=== PATIENT | female | born 1950 | race American Indian/Alaskan Native ===

== ENCOUNTER 2022-02-14 15:58 | Emergency (ER) | payer MEDICARE ==
[2022-02-14 16:09] VITALS: BP 192/72
--- NOTE | 2022-02-16 13:25 | Electrocardiograph Report ---
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
--- NOTE | 2022-02-16 13:25 | Electrocardiograph Report ---
[facility] Test Date: 2022-02-14 Test Time: 17:01:32 Pat Name: ROBBIN STEVENS Department: Room: Gender: F Director Of Acquisitions: JOSEPH : 1950 Requested By: CRIS BILL Order Number: [id number] Reading MD: Opal Vargas Measurements Intervals [place] Rate: 98 P: 66 [place]: 159 QRS: 31 QRSD: 71 T: 51 QT: 363 QTc: 464 Interpretive Statements Sinus rhythm Atrial premature complex Probable left atrial enlargement Compared to ECG 02/14/2022 16:13:04 Atrial premature complex(es) now present Electronically Signed On 02-16-2022 13:25:47 EDT by Opal Vargas
== END 2022-02-15 18:56 | disposition left against medical advice (07) ==
LOC: ED 15:58
DX: R42 Dizziness and giddiness (principal); Z53.21 Procedure and treatment not carried out due to patient leaving prior to being seen by health care provider
CPT/HCPCS: 93005

== ENCOUNTER 2022-02-15 07:25 | Emergency (ER) | payer MEDICARE ==
--- NOTE | 2022-02-15 08:16 | XRay Report ---
CHEST 2 VIEWS INDICATION / CLINICAL INFORMATION: Lightheadedness/Dizziness. COMPARISON: None available. FINDINGS: SUPPORT DEVICES: None. HEART / MEDIASTINUM: No significant abnormality. LUNGS / PLEURA: No significant pulmonary or pleural abnormality. No pneumothorax. ADDITIONAL FINDINGS: No significant additional findings. IMPRESSION: 1. No acute findings. Signer Name: Benito Hackett Jr, MD Signed: 02/15/2022 8:12 AM Workstation Name: [id number]
[2022-02-15 09:21] LABS: Basophils % (Auto) 0.6 % (0.0-1.8); Eosinophils # (Auto) 0.1 K/mm3 (0.0-0.4); Eosinophils % (Auto) 1.5 % (0.0-4.3); Hematocrit 40.7 % (30.3-42.9); Hemoglobin 13.1 gm/dl (10.1-14.3); Lymphocytes # (Auto) 1.7 K/mm3 (1.2-5.4); Lymphocytes % (Auto) 20.9 % (13.4-35.0); Mean Corpuscular HGB Conc 32 % (30-34); Mean Corpuscular Volume 91 fl (79-97); Monocytes # (Auto) 0.6 K/mm3 (0.0-0.8); Monocytes % (Auto) 7.3 % (0.0-7.3); Platelet Count 302 K/mm3 (140-440); Red Blood Count 4.49 M/mm3 (3.65-5.03); Red Cell Distribution Width 14.4 % (13.2-15.2)
[2022-02-15 09:28] LABS: Alanine Aminotransferase 29 units/L (7-56); Albumin 4.8 g/dL (3.9-5); Blood Urea Nitrogen 14 mg/dL (7-17); Calcium 10.2 mg/dL (8.4-10.2); Hemolysis Index 3
[2022-02-15 09:45] LABS: BUN/Creatinine Ratio 23
[2022-02-15 09:52] LABS: INR 0.91 (0.87-1.13)
[2022-02-16] MEDS ORDERED: SODIUM CHLORIDE 0.9% 1000 ML 1,000 ML IV ONE (00:55)
--- NOTE | 2022-02-16 01:04 | Emergency Department Report ---
HPI - General Chief Complaint: Dizziness PUI?: No Time Seen by Provider: 02/16/22 00:19 - HPI HPI: 79-year-old female with type 2 diabetes, peripheral neuropathy, presents for evaluation of dizziness. She states dizziness occurs primarily when she stands up and walks. She reports onset of symptoms 2 days ago while she was driving and states she had nausea and vomiting. She reports she came to the emergency department here but due to her prolonged wait time, she left without being seen. She states no prior history of similar symptoms in the past. She states no chest pain no shortness of breath no difficulty breathing or palpitations. She denies sensation that the room is spinning or that she is going to blackout or lose consciousness. She denies any focal weakness in her arms or legs and no tingling or numbness and no vision changes and no headache. No active or recent URI symptoms. Patient reports she was seen in a local urgent care center "they did an EKG and came recently for nausea and told me everything looked okay." Patient states she is returning requesting a CAT scan of her head "to make sure nothing bad is going on." Pain 0 out of 10. ED Past Medical Hx - Past Medical History Previous Medical History?: Yes Hx Diabetes: Yes Additional medical history: Diabetic peripheral neuropathy ED Review of Systems ROS: Stated complaint: DIZZINESS/VOMITTING Other details as noted in HPI Comment: All other systems reviewed and negative Physical Exam - Physical Exam Vital Signs: Vital Signs 02/15/22 02/15/22 02/16/22 07:46 21:21 00:20 Temperature 97.7 F 98.0 F Pulse Rate 79 89 Respiratory 16 18 Rate Blood Pressure 113/56 Blood Pressure 100/62 [Right] O2 Sat by Pulse 98 98 99 Oximetry General: Gen: pt is well appearing, no acute distress HEENT: Normocephalic atraumatic pupils equally round and reactive to light extraocular muscles intact sclera anicteric Neck: Full range of motion, no midline spinal tenderness palpation, no JVD, no carotid bruits, no nuchal rigidity CVS: S1-S2 regular rate and rhythm with no gallops rubs or murmurs, chest wall nontender Pulmonary: Clear to auscultation bilaterally, no wheezes rales or rhonchi Abdomen: Soft nondistended nontender no guarding or rebound tenderness, no palpable deformities or step-offs, normal active bowel sounds, no hepat osplenomegaly, no pulsatile masses : Deferred Extremities: No cyanosis no clubbing no edema, intact distal peripheral pulses, Integumentary: Skin normal, no petechia no purpura no abscess no lacerations no evidence of trauma no evidence of infection Neuro: Patient is awake alert and oriented to person place time situation, mentating well, cranial nerves II through XII intact, no focal neurodeficits, sensation grossly tact, negative Gotha-Hallpike maneuver, no asterixis no tremors no fasciculations Psych: Calm cooperative, mood affect normal ED Course Vital Signs 02/15/22 02/15/22 02/16/22 07:46 21:21 00:20 Temperature 97.7 F 98.0 F Pulse Rate 79 89 Respiratory 16 18 Rate Blood Pressure 113/56 Blood Pressure 100/62 [Right] O2 Sat by Pulse 98 98 99 Oximetry - Reevaluation(s) Reevaluation #1: 02/16/22 02:52 Patient reassessed. She is comfortable and well-appearing. She denies any complaints at this time. Pain currently 0 out of 10. She denies any active dizziness. ED Medical Decision Making - Lab Data Result diagrams: 02/15/22 08:21 02/15/22 08:21 - EKG Data -: EKG Interpreted by Me EKG shows normal: sinus rhythm - EKG Data When compared to previous EKG there are: previous EKG unavailable Interpretation: no acute changes 02/16/22 01:03 EKG interpreted by me: Ventricular rate 77 bpm. P waves are present and proceed every QRS complex. Intervals normal. No ST segment depressions elevations. No T wave flattening or inversions. Patient has atrial premature complexes. No arrhythmia. Sinus rhythm. - Radiology Data Radiology results: report reviewed - Medical Decision Making 71-year-old female with history of diabetes, peripheral neuropathy, presents for evaluation of transient dizziness. Patient found to have orthostasis and to become symptomatic when going from lying to standing. She was given normal saline via peripheral IV and reassess. Her physical exam is otherwise grossly unremarkable. She has no focal neurological deficits, her cranial nerves are grossly intact, and her NIH score is 0. Head CT negative. Serum labs grossly unremarkable. Urinalysis negative. Patient has no objective signs of any acute life-threatening process at this time. She was reassessed multiple times and she remains hemodynamically stable and neurovascular intact. No further emergent work-up warranted at this time. Patient stable for discharge to home. Patient has confirmed with me that she has already reached out to her primary care doctor but is were waiting a return call. She is advised that she is to telephone his office again today during the onset of regular business hours to speak with him and her staff members and to schedule immediate follow-up appointment for reassessment and further management. To discharge she was given strict verbal and written return precautions. She verbalized understanding and agreement the plan of care. Patient verbalized understanding and agreement the plan of care. Critical Care Time: No Critical care attestation.: If time is entered above; I have spent that time in minutes in the direct care of this critically ill patient, excluding procedure time. ED Disposition Clinical Impression: Orthostasis, Dizziness Disposition: 01 HOME / SELF CARE / HOMELESS Is pt being admited?: No Does the pt Need Aspirin: No Condition: Stable Instructions: Orthostatic Hypotension, Dizziness, [id number] Additional Instructions: Follow-up with your primary care doctor today for reassessment and further evaluation. This is very important. Be sure to drink plenty of fluids to stay hydrated. Take antinausea medicine as needed for nausea. Observe your symptoms very carefully. Return to the nearest emergency department as soon as possible if you develop persistent or worsening dizziness, vision changes, difficulty talking walking or word finding, weakness or numbness in either arm or leg and the numbness is not related to your neuropathy, inability tolerate liquids or solids, or if any other new worrisome symptoms develop
[2022-02-16 01:07] LABS: Color,Urine Colorless (Yellow)
--- NOTE | 2022-02-16 01:21 | Cat Scan Report ---
CT head without contrast INDICATION : Dizziness. Altered mental status. TECHNIQUE: Axial imaging performed from the skull apex through the skull base without the use of con trast. All CT examinations performed at this facility utilize dose modulation, iterative reconstruct ion or weight-based dosing, when appropriate, to reduce radiation dose to as low as reasonably achiev able. COMPARISON: None FINDINGS: No acute intracranial hemorrhage or parenchymal abnormality. Mild diffuse cerebral atrophy . There are several tiny lacunar infarcts within the right basal ganglia. Mild periventricular white matter changes are nonspecific but could be seen with microangiopathic change. Ventricles are normal in size and appear symmetric. Soft tissues including the orbits appear normal. No acute osseous a bnormality. Sinuses and mastoid air cells are clear. IMPRESSION: No acute intracranial hemorrhage.. Signer Name: Rahul Davidson MD Signed: 02/16/2022 1:17 AM Workstation Name: [id number]
[2022-02-16 03:21] VITALS: BP 155/55
[2022-02-16] MEDS ORDERED: FLUCONAZOLE 200 MG TAB PO ONE (03:33)
--- NOTE | 2022-02-16 13:32 | Electrocardiograph Report ---
[facility] Test Date: 2022-02-15 Test Time: 07:52:05 Pat Name: ROBBIN STEVENS Department: Room: Gender: F Management Specialist: NURSE : 1950 Requested By: MICHAEL WATTERS Order Number: [id number] Reading MD: Opal Vargas Measurements Intervals [place] Rate: 77 P: 65 CT: 164 QRS: 34 QRSD: 73 T: 32 QT: 402 QTc: 455 Interpretive Statements Sinus rhythm Atrial premature complex Probable left atrial enlargement Compared to ECG 02/14/2022 17:01:32 No significant changes Electronically Signed On 02-16-2022 13:31:55 EDT by Opal Vargas
== END 2022-02-16 03:21 | disposition home or self-care (01) ==
LOC: ED 07:25
DX: I95.1 Orthostatic hypotension (principal); R42 Dizziness and giddiness; E11.9 Type 2 diabetes mellitus without complications
CPT/HCPCS: 36415; 70450; 71046; 80053; 81001; 84484; 85025; 85610; 93005; 96360; 99285; J7030; 99284